=== PATIENT | female | born 1965 | race Caucasian/White ===

== ENCOUNTER 2019-04-08 00:10 | Inpatient (IN) | payer MEDICAID ==
[~2019-04-08] VITALS: Ht 170.2 cm; Wt 102.0 kg
[2019-04-08] MEDS ORDERED: LEVEMIR SQ (00:30)
[2019-04-08] MEDS ORDERED: NEURONTIN400 MG/CAP PO (00:31)
[2019-04-08] MEDS ORDERED: CELEBREX 200MG200 MG PO (00:31)
[2019-04-08] MEDS ORDERED: MICROZIDE12.5 MG (00:32)
[2019-04-08 00:50] LABS: HEMATOCRIT 46.6 % (37.0-47.0); HEMOGLOBIN 15.4 g/dl (12.5-16.0); MEAN CELL VOLUME 98 fl (80.0-100.0); MEAN CORPUSCULAR HEMOGLOBIN 32 pg (27.0-31.0); MEAN CORPUSCULAR HGB CONC 33 g/dl (33.0-37.0); MEAN PLATELET VOLUME 11.5 fl (7.4-10.4); PLATELET COUNT 313 K/mm3 (130-400); RED BLOOD COUNT 4.77 M/mm3 (4.10-5.30); REDCELL DISTRIBUTION WIDTH-CV 13.5 % (11.5-14.5)
[2019-04-08 00:55] LABS: PH 6 (5-8); SQUAMOUS EPITHELIAL 0-2 /hpf; URINE APPEARANCE Clear; URINE BACTERIA None Seen /hpf; URINE BILIRUBIN Negative (NEGATIVE); URINE BLOOD 3+ (NEGATIVE); URINE COLOR Straw; URINE GLUCOSE 3+ (NEGATIVE); URINE KETONE Negative (NEGATIVE); URINE LEUKOCYTE ESTERASE Trace (NEGATIVE); URINE NITRATE Negative (NEGATIVE); URINE PROTEIN(semi-quant) 1+ (NEGATIVE); URINE RBC >50 /hpf; URINE UROBILINOGEN Negative (NEGATIVE); URINE WBC 20-50 /hpf
[2019-04-08 01:24] LABS: BAND 3 % (0-10); EOSINOPHIL 4 % (0-4); LYMPHOCYTE 19 % (20.0-51.0); NEUTROPHILS 65 % (42.0-75.2); PLATELET ESTIMATE NORMAL (NORMAL)
[2019-04-08 02:01] LABS: ALANINE AMINOTRANSFERASE 16 U/L (9-52); ALBUMIN 4.2 gm/dL (3.5-5.0); ALKALINE PHOSPHATASE 214 U/L (50-136); ANION GAP 12 mmol/L (7-16); AST,SGOT 25 U/L (15-37); BILIRUBIN,TOTAL 0.4 mg/dL (0.0-1.0); BLOOD UREA NITROGEN 8 mg/dL (7-17); C-REACTIVE PROTEIN 3.4 mg/dL (0.0-0.9); CARBON DIOXIDE 23 mmol/L (22-30); CHLORIDE 105 mmol/L (98-107); CREATININE, serum 0.61 (0.52-1.25); POTASSIUM 3.9 mmol/L (3.4-5.0); SODIUM 141 mmol/L (137-145); TOTAL PROTEIN 7.5 gm/dL (6.4-8.2)
[2019-04-08 02:03] LABS: GLUCOSE 485 mg/dL (74-106)
[2019-04-08 02:11] LABS: TROPONIN-I < 0.012 ng/mL (0.000-0.035)
[2019-04-08] MEDS ORDERED: PRILOSEC10 MG PO (02:46)
[2019-04-08 03:12] LABS: COLLECTION METHOD CLEAN CATCH
--- NOTE | 2019-04-08 04:45 | NUR ---
PT ADMITTED TO ROOM 342 PER WC. A&OX4. NO RESP DISTRESS. RELATES PAIN AT LEVEL 8/10 BACK PAIN. VSS. ORIENTED TO ROOM. NO QUESTIONS A THIS TIME.
[2019-04-08 05:21] VITALS: BP 134/70; PULSE 81; TEMP 98.3
[2019-04-08] MEDS ORDERED: 00186-0372-20 IH (05:58)
--- NOTE | 2019-04-08 06:22 | NUR ---
TO BR INDEPENDENTLY. VOIDED 100CC DILUTE YELLOW WITH PINK TINGED URINE.
[2019-04-08] MEDS ORDERED: PROAIR HFA0.09 MG/AC IH (07:15)
[2019-04-08 08:40] VITALS: BP 136/66; PULSE 83; TEMP 97.8
--- NOTE | 2019-04-08 10:09 | NUR ---
HEIDY met with the patient to discuss a discharge plan. The pt lives in [place] with her daughter. The pt reports she will be moving to [place] in a month. The pt does not have DME and reports independence with ADLs. The pt's PCP is Dr. Janny White and pt receives her medications from [facility] with no difficulties. The pt does not have advanced directives in the EMR and was interested in obtaining a DPOA-HC form. HEIDY provided the form. The pt plans to return home upon discharge. SW will continue to follow for to assist with any discharge needs.
[2019-04-08 11:49] VITALS: BP 132/65; PULSE 77; TEMP 98.1
[2019-04-08 15:32] VITALS: BP 138/64; PULSE 78; TEMP 98.6
--- NOTE | 2019-04-08 18:17 | NUR ---
Patient has rested intermittently today. No complaints of pain, nausea, or vomiting. Patient remains alert and oriented, answers questions appropriately. IV fluids continue per order. Patient denies needs at this time, call light within reach.
[2019-04-08 19:16] VITALS: BP 135/72; PULSE 76; TEMP 98.2
--- NOTE | 2019-04-08 20:30 | NUR ---
PT RESTING IN BED. NO APPARENT DISTRESS. C/O BACK PAIN LEVEL 8/10. NO DYSPNEA. PERIPHERAL PULSES STRONG. VSS. SEE MAR FOR PAIN MED GIVEN. IV TO RT AC LR AT 125CC/HR. POSITIONAL.
[2019-04-09] VITALS: BP 146/74; PULSE 80; TEMP 98.5
[2019-04-09 04:00] VITALS: BP 151/68; PULSE 79; TEMP 98
[2019-04-09 06:59] LABS: BASO # 0.1 (0.0-0.2); BASO % 0.8 % (0.0-2.0); EOS # 0.7 (0.0-0.7); EOS % 5.3 % (0-4.0); GRAN % 54.4 % (42.2-75.2); HEMATOCRIT 42.3 % (37.0-47.0); HEMOGLOBIN 14.1 g/dl (12.5-16.0); LYMPH # 3.5 (1.2-3.4); LYMPH % 27.5 % (20.0-51.0); MEAN CELL VOLUME 98 fl (80.0-100.0); MEAN CORPUSCULAR HEMOGLOBIN 33 pg (27.0-31.0); MEAN CORPUSCULAR HGB CONC 33 g/dl (33.0-37.0); MEAN PLATELET VOLUME 12.1 fl (7.4-10.4); MONO # 1.4 (0.1-0.6); MONO % 11.1 % (1.7-9.3); PLATELET COUNT 240 K/mm3 (130-400); RED BLOOD COUNT 4.31 M/mm3 (4.10-5.30); REDCELL DISTRIBUTION WIDTH-CV 13.3 % (11.5-14.5)
[2019-04-09 07:23] LABS: CALCIUM 8.4 mg/dL (8.4-10.2); CREATININE, serum 0.45 (0.52-1.25); POTASSIUM 3.4 mmol/L (3.4-5.0)
[2019-04-09 07:29] VITALS: BP 146/64; PULSE 72; TEMP 97.7
--- NOTE | 2019-04-09 09:45 | NUR ---
Patient alert and oriented, answers questions appropriately. See assessement. Lungs CTA, no c/o SOA. BLE with homans negative, pulses palpable. No redness or swelling noted to BLE. No c/o at this time.
--- NOTE | 2019-04-09 11:35 | NUR ---
First visit from the canvas worker. No needs right now.
[2019-04-09 11:48] VITALS: BP 126/84; PULSE 81; TEMP 98.2
[2019-04-09] MEDS ORDERED: OMNICEF 300MG300 MG PO (15:07)
[2019-04-09] MEDS ORDERED: LOVENOX 100100 MG/ML SQ (15:08)
[2019-04-09] MEDS ORDERED: NORCO 325 MG-51 TAB PO (15:10)
--- NOTE | 2019-04-09 16:36 | NUR ---
Discharge instructions reviewed with patient, verbalized understanding. Lovenox injections reviewed with patient, verbalized understanding. Discharged via wheelchair to auto/home with family at 1630.
== END 2019-04-09 16:30 | disposition home or self-care (01) | DRG 176 ==
LOC: COL.ER 00:10 → SURG 03:57
PROVIDERS: Nurse Practitioner Family; Physician Assistant; ADMIT Family Medicine
DX: I26.99 Other pulmonary embolism without acute cor pulmonale (principal); C92.10 Chronic myeloid leukemia, BCR/ABL-positive, not having achieved remission; E11.65 Type 2 diabetes mellitus with hyperglycemia; J43.9 Emphysema, unspecified; F17.210 Nicotine dependence, cigarettes, uncomplicated; N30.90 Cystitis, unspecified without hematuria; R91.8 Other nonspecific abnormal finding of lung field; E66.9 Obesity, unspecified; D45 Polycythemia vera; Z88.6 Allergy status to analgesic agent; Z68.35 Body mass index [BMI] 35.0-35.9, adult
CPT/HCPCS: 99222-AI; 99239; A4216; J0696; J1650; J1815; J7030; Q9967

== ENCOUNTER 2019-05-14 09:53 | Emergency (ER) | payer MEDICAID ==
[~2019-05-14] VITALS: Ht 170.2 cm; Wt 86.4 kg
[~2019-05-14 09:53] MED LIST: 00186-0372-20 IH; CELEBREX 200MG200 MG PO; LEVEMIR SQ; LOVENOX 100100 MG/ML SQ; MICROZIDE12.5 MG; NEURONTIN400 MG/CAP PO; NORCO 325 MG-51 TAB PO; OMNICEF 300MG300 MG PO; PRILOSEC10 MG PO; PROAIR HFA0.09 MG/AC IH
[2019-05-14 10:06] VITALS: TEMP 99.6
[2019-05-14 10:43] LABS: HEMATOCRIT 47.1 % (37.0-47.0); HEMOGLOBIN 15.9 g/dl (12.5-16.0); MEAN CELL VOLUME 96 fl (80.0-100.0); MEAN CORPUSCULAR HEMOGLOBIN 32 pg (27.0-31.0); MEAN CORPUSCULAR HGB CONC 34 g/dl (33.0-37.0); PLATELET COUNT 250 K/mm3 (130-400); RED BLOOD COUNT 4.93 M/mm3 (4.10-5.30); REDCELL DISTRIBUTION WIDTH-CV 12.9 % (11.5-14.5)
[2019-05-14 10:52] LABS: ALBUMIN 4.3 gm/dL (3.5-5.0); BILIRUBIN,TOTAL 0.9 mg/dL (0.0-1.0); CALCIUM 9.4 mg/dL (8.4-10.2); CREATININE, serum 0.43 (0.52-1.25); POTASSIUM 3.4 mmol/L (3.4-5.0); TOTAL PROTEIN 7.8 gm/dL (6.4-8.2)
[2019-05-14 10:53] LABS: INR 1.4 (0.8-3.0); PROTHROMBIN TIME 16.2 SECONDS (9.7-12.8)
[2019-05-14 10:56] LABS: PARTIAL THROMBOPLASTIN TIME 40.2 SECONDS (26.0-37.0)
[2019-05-14 11:17] LABS: LYMPHOCYTE 16 % (20.0-51.0); NEUTROPHILS 72 % (42.0-75.2); PLATELET ESTIMATE NORMAL (NORMAL)
[2019-05-14] MEDS ORDERED: NORCO 325 MG-7.1 TAB PO (11:53)
[2019-05-14] MEDS ORDERED: LEVAQUIN 750MG750 M1 PO (11:59)
[2019-05-14 13:07] VITALS: BP 117/68; PULSE 74
== END 2019-05-14 13:08 | disposition home or self-care (01) ==
LOC: COL.ER 09:53
PROVIDERS: Physician Assistant
DX: I26.99 Other pulmonary embolism without acute cor pulmonale (principal); J18.9 Pneumonia, unspecified organism; E11.9 Type 2 diabetes mellitus without complications; F17.210 Nicotine dependence, cigarettes, uncomplicated; Z86.718 Personal history of other venous thrombosis and embolism; Z79.4 Long term (current) use of insulin
CPT/HCPCS: J2405; J3010; J7030; Q9967

== ENCOUNTER 2019-08-19 12:30 | Emergency (ER) | payer MEDICAID ==
[~2019-08-19] VITALS: Ht 170.2 cm; Wt 92.0 kg
[~2019-08-19 12:30] MED LIST changes: +LEVAQUIN 750MG750 M1 PO; +NORCO 325 MG-7.1 TAB PO
[2019-08-19 12:40] VITALS: BP 143/74; TEMP 97.7
[2019-08-19] MEDS ORDERED: LIDODERM 5% PATC1 EA TP (13:15)
[2019-08-19] MEDS ORDERED: FLEXERIL 1010 MG/TAB PO (13:15)
[2019-08-19 13:52] VITALS: PULSE 68
== END 2019-08-19 13:52 | disposition home or self-care (01) ==
LOC: COL.ER 12:30
DX: M25.511 Pain in right shoulder (principal); K21.9 Gastro-esophageal reflux disease without esophagitis; F17.210 Nicotine dependence, cigarettes, uncomplicated; Z88.6 Allergy status to analgesic agent; Z88.8 Allergy status to other drugs, medicaments and biological substances; Z79.4 Long term (current) use of insulin; Z79.51 Long term (current) use of inhaled steroids

== ENCOUNTER 2023-07-18 16:32 | Emergency (ER) | payer MEDICAID ==
[~2023-07-18] VITALS: Ht 170.2 cm; Wt 85.5 kg
[~2023-07-18 16:32] MED LIST changes: +FLEXERIL 1010 MG/TAB PO; +LIDODERM 5% PATC1 EA TP
[2023-07-18] MEDS ORDERED: FLEXERIL 1010 MG/TAB PO (18:18)
[2023-07-18] MEDS ORDERED: NAPROSYN500 MG PO (20:29)
[2023-07-18 20:35] VITALS: BP 127/58; PULSE 82; TEMP 98.3
== END 2023-07-18 20:35 | disposition home or self-care (01) ==
LOC: COL.ER 16:32
DX: M54.50 Low back pain, unspecified (principal); G89.29 Other chronic pain; F17.210 Nicotine dependence, cigarettes, uncomplicated; Z87.39 Personal history of other diseases of the musculoskeletal system and connective tissue
CPT/HCPCS: J1885